=== PATIENT | male | born 1965 | race Caucasian/White ===

== ENCOUNTER 2024-06-07 04:37 | Emergency (ER) | payer BC, SELFPAY ==
[2024-06-07 04:40] VITALS: BP 145/96; PULSE 74; RESP 19; TEMP 36.7; O2SAT 99; BMI 31.7
--- NOTE | 2024-06-07 04:55 | HMH.EDGENADL ---
Discharge Plan Disposition Patient Disposition: Home, Self-Care Condition: Good Prescriptions Prescriptions: New methocarbamol 500 mg tablet 500 mg PO Q6H PRN (Reason: muscle spasm) Qty: 30 0RF lidocaine 5 % adhesive patch,medicated See Rx Instructions .ROUTE .COMPLEX Qty: 15 0RF Rx Instructions: leave 1 patch on most painful area for 12 hrs, remove and leave off for 12 hours before using a new patch Referrals Follow up/Referrals: Provider,MD Edgard [Primary Care Provider] - See instructions Filiberto Porter MD [Staff Physician] - See instructions (Needs PCP, seen in ER for muscle spasm) Activity Restrictions/Add. Instructions Additional Instructions/Restrictions: You were evaluated in the ER and are appropriate for discharge at this time. Take the prescribed medications as directed if needed for muscle spasm. You can also take Tylenol, ibuprofen. Do not exceed the recommended dose on the bottle. Make an appointment with Dr. Porter for follow-up. Return to the ER with new, worsening, or otherwise concerning symptoms. Clinical Impressions Clinical Impression: Lumbar paraspinal muscle spasm Instructions Patient Instructions: DI for Low Back Pain Print Language Print Language: Macedonian Discharge ED Provider: Karin Sawant General Adult HPI General Chief complaint: Back Pain/Injury Stated complaint: severe lower L back pain Time Seen by Provider: 06/07/24 04:44 History of Present Illness HPI narrative: 58-year-old male with no known medical conditions, no daily medications, no known drug allergies presents to the ER with complaints of left-sided back pain. Patient states approximately 2 weeks ago he dropped a log on his left foot. He states he was walking funny after this and thinks he caused his back to start hurting. He states it has been gradually worsening over the last week and in the last 2 to 3 days has become severe. He has taken ibuprofen without significant relief. Patient denies saddle anesthesia, numbness, tingling, weakness, bowel or bladder retention or incontinence. Patient states the pain is worse when he moves and improved when he is still. He states he works on his feet lifting, bending, carrying objects and this has exacerbated his pain. He has no hematuria, no dysuria, no history of kidney stones. ROS otherwise negative. Related Data Previous Rx's ?Medication ?Instructions ?Recorded lidocaine 5 % topical patch See Rx Instructions topical 06/07/24 .COMPLEX #15 ea methocarbamol 500 mg tablet 500 mg PO Q6H PRN muscle spasm #30 06/07/24 tabs Allergies Allergy/AdvReac Type Severity Reaction Status Date / Time No Known Allergies Allergy Verified 06/07/24 05:01 [facility] Disclaimer: The information contained in this section may have been updated after the patient was seen, as this information can be updated by other users. Medical History (Updated 06/07/24 @ 05:17 by Karin Sawant MD) No significant medical problems Social History Smoking Status: Current every day smoker alcohol intake: never current occupational status: employed Travel in the last 8 weeks: None ROS Obtained: Yes All systems reviewed & no additional complaints except as documented Positive ROS per HPI Physical Exam General General appearance: alert and in no apparent distress Head Head exam: atraumatic and normocephalic Eye Eye exam: Present PERRL and EOMI ENT ENT exam: Present mucous membranes moist Neck Neck exam: Present normal inspection and full ROM Chest Chest inspection: Present symmetric chest wall rise Respiratory Respiratory exam: Present normal lung sounds bilaterally; Absent respiratory distress, wheezes or stridor Cardiovascular Cardiovascular exam: Present regular rate and normal rhythm Abdominal Exam Abdominal exam: Present soft; Absent distention or tenderness Extremities Exam Extremities exam: Present full ROM Back Exam Back exam: Present m
--- NOTE | 2024-06-07 04:58 | PC.NURSE ---
Patient arrived utilizing a makeshift cane for stability while walking. Patient had difficulty taking steps due to increased pain with movement. Patient declined wheelchair assistance to room, stating that he was unsure if he could stand again after sitting down. Patient has tenderness to palpation to the left lower and mid back with shooting pain to leg that he states makes it feel like his leg doesn't want to work . Patient sitting in chair in room at the time of triage and pain is reduced while not attempting to move or shift his weight.
[2024-06-07 05:25] VITALS: BP 145/96; PULSE 74; RESP 18; TEMP 36.7; O2SAT 99
== END 2024-06-07 05:28 | disposition home or self-care (01) ==
PROVIDERS: Emergency Provider Emergency Medicine
DX: M62.830 Muscle spasm of back (principal); M54.50 Low back pain, unspecified; X50.0XXA Overexertion from strenuous movement or load, initial encounter; X50.3XXA Overexertion from repetitive movements, initial encounter
CPT/HCPCS: 96372; 99283; J1885

== ENCOUNTER 2024-06-14 15:33 | Outpatient (CLI) | payer BC, SELFPAY ==
[2024-06-14 19:33] LABS: Alanine Aminotransferase 36 U/L (12-78); Albumin Level 4.8 g/dl (3.5-5.0); Albumin/Globulin Ratio 1.4 (1.1-1.8); Alkaline Phosphatase 66 U/L (38-126); Aspartate Amino Transferase 34 U/L (17-59); Bilirubin,Total 0.5 mg/dl (0.2-1.3); Blood Urea Nitrogen 19 mg/dl (9-20); Calcium 9.9 mg/dl (8.4-10.2); Carbon Dioxide 26 mmol/L (22.0-30.0); Chloride 106 mmol/L (98-107); Chol/HDL Ratio 6.6 (1-3.5); Cholesterol 318 mg/dl (140-200); Estimated Glomerular Filt Rate 99 ml/min (>60); GFR (African American) 120 ML/MIN (>60); Globulin 3.5 g/dL (1.3-3.2); Glucose 90 mg/dl (74-100); HDL Cholesterol 48 mg/dl (40-60); Sodium 142 mmol/L (136-145); Total Protein,Serum 8.3 g/dl (6.3-8.2)
[2024-06-14 19:46] LABS: Direct LDL Cholesterol 185.83 mg/dL (100-129)
[2024-06-14 20:00] LABS: Triglycerides 464 mg/dl (30-150)
[2024-06-14 20:05] LABS: Prostate Specific Ag Screen 0.9 ng/ml (0.0-4.0)
== END 2024-06-14 23:59 | disposition home or self-care (01) ==
LOC: LAB.DROPOF 06-15 15:33
PROVIDERS: PCP Family Medicine; Visit Provider Family Medicine
DX: R53.83 Other fatigue (principal); Z12.5 Encounter for screening for malignant neoplasm of prostate; Z13.220 Encounter for screening for lipoid disorders
CPT/HCPCS: 80053; 80061; G0103

== ENCOUNTER 2024-06-22 16:07 | Outpatient (CLI) | payer BC, SELFPAY ==
--- NOTE | 2024-06-22 16:22 | MR_ITS ---
PROCEDURE INFORMATION: Exam: MR Lumbar Spine Without Contrast Exam date and time: 06/22/2024 4:43 PM Age: 58 years old Clinical indication: Low back pain; Additional info: L5 left radiculopathy and low back pain TECHNIQUE: Imaging protocol: Magnetic resonance imaging of the lumbar spine without contrast. COMPARISON: No relevant prior studies available. FINDINGS: Bones/joints: There is preservation of vertebral alignment. There is preservation of vertebral body heights. No marrow replacing process. There is mild levoconvex curvature of the lumbar spine. Spinal cord: Visualized cord, conus medullaris and cauda equina are unremarkable without compression. L1-L2: No significant disc bulge or herniation. No severe spinal canal stenosis. No significant neural foraminal narrowing. L2-L3: No significant disc bulge or herniation. No severe spinal canal stenosis. No significant neural foraminal narrowing. L3-L4: No significant disc bulge or herniation. No severe spinal canal stenosis. No significant neural foraminal narrowing. L4-L5: No significant disc bulge or herniation. No severe spinal canal stenosis. No significant neural foraminal narrowing. L5-S1: No significant disc bulge or herniation. No severe spinal canal stenosis. No significant neural foraminal narrowing. Soft tissues: Unremarkable. IMPRESSION: No evidence of significant spinal canal stenosis or neural foraminal narrowing at any level.
== END 2024-06-22 23:59 | disposition home or self-care (01) ==
LOC: RAD 16:09
PROVIDERS: PCP Family Medicine; Visit Provider Family Medicine
DX: M54.16 Radiculopathy, lumbar region (principal)
CPT/HCPCS: 72148

== ENCOUNTER 2024-06-24 09:27 | Outpatient (CLI) | payer BC, SELFPAY ==
[2024-06-24 18:58] LABS: Uric Acid 8.2 mg/dl (3.5-8.5)
== END 2024-06-24 23:59 | disposition home or self-care (01) ==
LOC: LAB.DROPOF 06-27 12:25
PROVIDERS: PCP Family Medicine; Visit Provider Family Medicine
DX: M79.672 Pain in left foot (principal)
CPT/HCPCS: 84550